=== PATIENT | male | born 1985 | race Caucasian/White ===

== ENCOUNTER 2021-06-09 12:59 | Emergency (ER) | payer BC, OTHER ==
[~2021-06-09] VITALS: Ht 177.8 cm; Wt 79.4 kg
[2021-06-09 13:28] VITALS: BP 135/86
[2021-06-09] MEDS ORDERED: KETOROLAC TROMETH 60MG/2ML VIAL IM ONE (13:30)
== END 2021-06-09 13:55 | disposition home or self-care (01) ==
LOC: ER 12:59
DX: S83.91XA Sprain of unspecified site of right knee, initial encounter (principal); X50.1XXA Overexertion from prolonged static or awkward postures, initial encounter; Y93.89 Activity, other specified; Y92.89 Other specified places as the place of occurrence of the external cause; Y99.8 Other external cause status
CPT/HCPCS: 29505; 73562; 96372; 99283; J1885